=== PATIENT | male | born 1965 | race Caucasian/White ===

== ENCOUNTER 2024-11-04 21:20 | Inpatient (IN) | payer MEDICARE, SELFPAY ==
[2024-11-04 21:35] VITALS: BP 116/73; PULSE 90; RESP 18; TEMP 37.7; O2SAT 97
--- NOTE | 2024-11-04 22:22 | EDS_ITS ---
HPI History of Present Illness Chief Complaint: Male Pain/Injury Informant: patient Pain Onset: Today Context: Gradual Onset Timing: Continuous Worsened by: Ambulation Relieved by: Rest Narrative Narrative: Patient presents with right inguinal pain that began this morning when he woke up. Patient states that it is gradually gotten worse throughout the day. Patient describes the pain as dull. Patient states it is worse whenever he ambulates. Patient states it is better when he lays down. Patient also admits to some bumps in his right inguinal area. Patient states he had a fever earlier today that was up to 100.8. Patient states it improved with Tylenol. Patient states nothing seems to help with his pain. Patient states that when he is ambulating, he notices that his lower leg turned purple. Patient denies any coldness. Patient states he has a history of vascular stents in both lower extremities. [facility] Medical History (Updated 11/05/24 @ 00:[address] Osman Brown, ) DVT (deep venous thrombosis) Home Medications ?Medication ?Instructions ?Recorded ?Last Taken ?Type herbal complex no.174 450 mg 450 mg PO PRN 11/04/24 Unknown History capsule (Echinacea and Goldenseal) vitamin A 2,400 mcg capsule 2,400 mcg PO DAILY 11/04/24 Unknown History Allergy/AdvReac Type Severity Reaction Status Date / Time Opioids - Morphine Analogues Allergy Other Verified 11/04/24 21:34 Surgical History S/P ORIF (open reduction internal fixation) fracture S/P peripheral artery angioplasty with stent placement Social History Smoking Status: Never smoker ROS ROS ED Constitutional Constitutional ED: Reports fever(s); Denies chills Eyes Eyes: Denies blurry vision or change in vision ENT ENT ED: Denies rhinorrhea or sore throat Cardiovascular Cardiovascular: Denies chest pain or palpitations Respiratory/Chest Respiratory/Chest: Denies cough or dyspnea Gastrointestinal Gastrointestinal: Denies nausea or vomiting Genitourinary Genitourinary ED: Denies dysuria or hematuria Musculoskeletal Musculoskeletal: Reports back pain; Denies neck pain Integumentary Denies abscess or rash Neurologic Neurologic: Denies headache(s) or weakness Allergic/Immunologic Allergic/Immunologic ED: Denies mouth swelling or urticaria EXAM Physical Exam Const Vital Signs: 11/04/24 21:35 11/04/24 23:30 Temperature 100 F H Temperature Source Oral Pulse Rate 90 75 Respiratory Rate 18 16 Blood Pressure 116/73 129/72 H Blood Pressure Mean 87 91 Pulse Ox 97 99 Oxygen Delivery Method Room Air Room Air Positive well nourished and well developed General Appearance ED: well developed and NAD HEENT Reports moist mucous membranes Neck supple and no JVD Resp normal respiratory effort and clear to auscultation bilaterally Cardio regular rate and regular rhythm GI non-tender and non-distended Palpation: soft Extremity Extremity Narrative: There is some edema of the right lower extremity. There is no calf tenderness. The right femoral, posterior tibial, and dorsalis pedis pulses are diminished. There is mild delayed capillary refill in the right foot. Sensation was intact to light touch in all digits. There is good range of motion. There is no pallor. Extremities are warm. General Extremety ED: Yes pulses abnormal General Extremity: pulses abnormal Neuro oriented x3, CN's II-XII intact bilaterally, moves all extremities, no focal motor deficits and no sensory deficits noted Sensorium / Orientation: alert Motor Exam: strength 5/5 throughout Psych mental status grossly normal MDM MDM MDM Narrative Medical decision making narrative: Differential diagnosis includes peripheral arterial disease, DVT, inguinal lymphadenitis, cellulitis. CBC will be obtained to assess for leukocytosis and anemia. Basic metabolic profile will be obtained to assess for electrolyte abnormality and renal function. PT with INR and PTT will be obtained to assess for coagulopathy. Venous duplex of the lower extremities will be obtained to assess for DVT. CT scan of the abdomen and pelvis with lower extremity runoffs will be obtained to assess for vascular occlusion. Lab Data Attestation: I reviewed the patient's lab results. Lab results narrative: CBC was reviewed. There is a slight anemia with a hemoglobin of 12.6 and hematocrit of 37.2. Platelets were slightly low at 98. Basic metabolic profile was reviewed and was essentially within normal limits. PT with INR and PTT were reviewed. Pro time was 15.1 and INR was 1.2. PTT was normal at 30. Urinalysis was reviewed. Occult blood was 150 with 5-10 red blood cells. There is no evidence of urinary tract infection. Labs: Laboratory Results - last 24 hr 11/04/24 11/04/24 22:55 23:58 WBC 6.5 RBC 4.10 L Hgb 12.6 L Hct 37.2 L MCV 90.7 MCH 30.7 MCHC 33.9 RDW Std Deviation 49.1 H RDW Coeff of Armida 14.7 H Plt Count 98 L MPV 11.1 Immature Gran % (Auto) 0.300 Neut % (Auto) 78.2 H Lymph % (Auto) 12.3 L [place] % (Auto) 8.1 Eos % (Auto) 0.8 Baso % (Auto) 0.3 Absolute Neuts (auto) 5.1 Absolute Lymphs (auto) 0.80 L Nucleated RBC % 0 Differential Comment SEE COMMENT Platelet Estimate MOD DEC RBC Morphology N CHROM Anisocytosis RARE Macrocytosis RARE PT 15.1 H INR 1.2 APTT 30.0 Sodium 139 Potassium 3.5 Chloride 104 Carbon Dioxide 30.0 Anion Gap 5 BUN 21 H Creatinine 1.03 Estim Creat Clear Calc 85.62 Est GFR (MDRD) Af Amer 96 Est GFR (MDRD) Non-Af 79 BUN/Creatinine Ratio 20.4 H Glucose 111 H Calcium 9.4 Urine Color Yellow Urine Clarity Clear Urine pH 6.0 Ur Specific [place] 1.010 Urine Protein 15 H Urine Glucose (UA) Normal Urine Ketones Negative Urine Occult Blood 150 H Urine Nitrite Negative Urine Bilirubin Negative Urine Urobilinogen Normal Ur Leukocyte Esterase Negative Urine RBC 5-10 SEEN Urine WBC 0-5 SEEN Ur Squamous Epith Cells 0-5 SEEN Uric Acid Crystals 1+ Urine Bacteria 0 SEEN Hyaline Casts 0-5 SEEN Urine Mucus 1+ Radiography Diagnostic Testing: Venous duplex of the right lower extremity was obtained. There is a DVT noted in the right common femoral vein that extends distally down his leg. CTA of the abdomen pelvis with lower extremity runoffs was obtained and is pending. Management Discussion w/another healthcare provider: Hospitalist Treatment and Re-Evaluation Narrative: Patient was given a dose of fentanyl due to his allergy to morphine. Patient states he developed headache after the fentanyl. Patient was given a dose of Tylenol. Patient was advised of his findings. Case was discussed with the hospitalist. He recommended starting the patient on Eliquis due to the thrombocytopenia. This was ordered.. Patient understands and is agreeable with the plan. All questions were answered. Discharge Plan Dx/Rx/DC Orders Clinical Impression: Acute deep vein thrombosis (DVT) of right lower extremity, Peripheral arterial disease, Thrombocytopenia Disposition Disposition: Acute Care Hospital [facility]
--- NOTE | 2024-11-04 22:32 | CT_ITS ---
EXAM: CT ANGIOGRAPHY ABDOMEN AND PELVIS WITH RUNOFF TO THE LOWER EXTREMITIES WITH INTRAVENOUS CONTRAST CLINICAL INDICATION: Abnormal pulses TECHNIQUE: Helically acquired angiography images were obtained of the abdomen, pelvis and lower extremities with intravenous contrast using CTA runoff protocol. This CT exam was performed using one or more of the following dose reduction techniques: automated exposure control, adjustment of the mA and/or kV according to patient size, and/or use of iterative reconstruction technique. MIP reconstructed images were created and reviewed. CONTRAST: 100 cc of Isovue-370 IV. RADIATION DOSE: CTDIvol = 8.59 mGy, DLP = 1080.29 mGy-cm COMPARISON: No relevant prior studies available. FINDINGS: VASCULATURE: AORTA: Mild atherosclerotic changes of the infrarenal abdominal aorta without stenosis or aneurysm. No dissection. CELIAC TRUNK AND MESENTERIC ARTERIES: No acute findings. No occlusion or significant stenosis. No dissection. RENAL ARTERIES: No acute findings. No occlusion or significant stenosis. No dissection. RIGHT ILIAC ARTERIES: No acute findings. No occlusion or significant stenosis. No dissection. RIGHT FEMORAL/POPLITEAL ARTERIES: No acute findings. No occlusion or significant stenosis. No dissection. RIGHT CALF/FOOT ARTERIES: Diffuse atherosclerotic calcifications with occlusion of the right posterior tibial and peroneal arteries. Diffuse atherosclerotic calcifications right posterior tibial artery with occlusion at the midpoint in the calf. Poor visualization of the distal right anterior tibial artery probably due to timing of the contrast bolus. LEFT ILIAC ARTERIES: No acute findings. No occlusion or significant stenosis. No dissection. LEFT FEMORAL/POPLITEAL ARTERIES: No acute findings. No occlusion or significant stenosis. No dissection. LEFT CALF/FOOT ARTERIES: Diffuse atherosclerotic calcifications left peroneal artery with occlusion distally. Poor visualization of the distal left anterior tibial artery probably due to timing of the contrast bolus. ILIAC VEINS: Bilateral common iliac vein stents. LOWER THORAX: Unremarkable. Lung bases are clear. No cardiomegaly. No significant pericardial effusion. ABDOMEN: LIVER: Unremarkable. Homogeneous. No focal mass. GALLBLADDER AND BILE DUCTS: Unremarkable. No calcified gallstones. No gallbladder distention or wall edema. No intra- or extrahepatic biliary ductal dilation. PANCREAS: Unremarkable. No focal cystic or solid mass. SPLEEN: Unremarkable. Normal size without focal cystic or solid mass. ADRENALS: Unremarkable. No nodules. KIDNEYS AND URETERS: Unremarkable. Normal renal size and position. No hydronephrosis. STOMACH AND BOWEL: Unremarkable. No stomach or bowel distention. No focal inflammatory change. PELVIS: APPENDIX: No evidence of acute appendicitis. BLADDER: Unremarkable. REPRODUCTIVE: Unremarkable as visualized. No mass. ABDOMEN, PELVIS and LOWER EXTREMITIES: INTRAPERITONEAL SPACE: Unremarkable. No ascites or other fluid collection. No free air. 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 Status post ACL repair left knee. No suspicious lytic or blastic abnormality. SOFT TISSUES: Unremarkable. No discrete abdominal or pelvic wall hernia. LYMPH NODES: Unremarkable. No enlarged lymph nodes. CT/CTA Abd w/Runoff W/WO Contrast IMPRESSION: 1. Diffuse atherosclerotic calcifications with occlusion of the right posterior tibial and peroneal arteries. Poor visualization of the distal right anterior tibial artery probably due to timing of the contrast bolus. 2. Diffuse atherosclerotic calcifications left peroneal artery with occlusion distally. Poor visualization of the distal left anterior tibial artery probably due to timing of the contrast bolus. Electronically Signed: Mino hRodes MD at 1:46 EST ,
[2024-11-04 22:37] VITALS: BMI 22.8
--- NOTE | 2024-11-04 22:47 | US_ITS ---
INDICATION: RT LEG REDNESS EXAMINATION: Ultrasound US Venous Duplex LE Unilat / Limited TECHNIQUE: Boyd scale, pulse wave, and color flow Doppler imaging was performed of the extremity venous system. COMPARISON: None. US/Venous Duplex Imag/Limited/Uni IMPRESSION: DVT of the right common femoral vein extending into right superficial femoral vein Electronically Signed: Harris León MD at 1:46 EST ,
[2024-11-04] MEDS: 0.9% Normal Saline (1000mL) 1,000 ML 1000 ML IV (22:54)
[2024-11-04] MEDS: fentaNYL 100 MCG/2 ML Ampul 50 MCG IV (22:55)
[2024-11-04 23:09] LABS: Absolute Neutrophil Count 5.1 X10^3/uL (2.0-7.7); Basophil# 0.02 X10^3/uL; Basophil% 0.3 % (0-1); Eosinophil# 0.05 X10^3/uL; Eosinophils% 0.8 % (0-5); Hematocrit 37.2 % (40-54); Hemoglobin 12.6 g/dL (13.0-16.5); Lymphocyte % 12.3 % (19-41); Mean Corp Hgb Conc 33.9 g/dL (32-36); Mean Corpuscular Hgb 30.7 pg (27.0-32.0); Mean Corpuscular Volume 90.7 fL (80-94); Mean Platelet Vol. 11.1 fl (6.2-12.0); Monocyte# 0.53 X10^3/uL; Monocyte% 8.1 % (0-10); NRBC Flagged by Analyzer 0 % (0-5); Neutrophil % 78.2 % (47-70); POSITIVE COUNT YES; Platelet Count 98 K/mm3 (150-450); RBC Distribution Width CV 14.7 % (11.6-14.6); RBC Distribution Width SD 49.1 fl (35.1-43.9); White Blood Count 6.5 K/mm3 (4.4-11.0)
[2024-11-04 23:17] LABS: International Normalized Ratio 1.2; Prothrombin Time (Protime)PT. 15.1 SECONDS (11.7-14.9)
[2024-11-04 23:22] LABS: Anion Gap 5 (5-15); BUN 21 mg/dL (7-18); BUN/Creat Ratio 20.4 RATIO (10-20); Calcium,Total 9.4 mg/dL (8.5-10.1); Chloride 104 mmol/L (98-107); Creatinine, Serum 1.03 mg/dL (0.70-1.30); EST Glomerular Filtration Rate 79 mL/min (>60); Est Glom Filt Rate - Afr Amer 96 mL/min (>60); Estimated Creatinine Clearance 85.62 ml/min; Glucose 111 mg/dL (74-106); Potassium 3.5 mmol/L (3.5-5.1); Sodium Level 139 mmol/L (136-145)
[2024-11-04 23:30] VITALS: BP 129/72; PULSE 75; RESP 16; O2SAT 99
[2024-11-04 23:30] LABS: Differential Indicated SCAN CRITERIA MET
[2024-11-04 23:31] LABS: Anisocytosis RARE; Macrocytosis RARE; Platelet Estimate MOD DEC (ADEQ); Red Cell Morphology N CHROM NORMAL (NORM C&C)
[2024-11-05 00:17] LABS: Bacteria 0 SEEN /hpf (None Seen)
[2024-11-05 00:25] LABS: Color, Urine Yellow (Yellow); Glucose, Dipstick Normal (Normal); Ketone-Dipstick Negative (Negative); Leukocyte Esterase-Dipstick Negative /ul (Negative); Nitrite-Dipstick Negative (Negative); Occult Blood-Urine 150 /ul (Negative); Protein-Dipstick 15 mg/dl (Negative); Urine Bilirubin Dipstick Negative (Negative); Urine Clarity Clear (Clear); Urine Urobilinogen Normal (Normal)
[2024-11-05 00:36] LABS: Hyaline Cast 0-5 SEEN /lpf (0-5); Mucous, Urine 1+ /hpf (<or=2+); Red Blood Cells-Urine 5-10 SEEN /hpf (0-5); Squamous Epithelial Cells - UA 0-5 SEEN /hpf (0-5); Uric Acid Crystals Ur 1+ /hpf (<or=1+); White Blood Cells 0-5 SEEN /hpf (0-5)
[2024-11-05] MEDS: Acetaminophen 500 MG Tablet 1000 MG PO (00:52)
[2024-11-05] MEDS: APIXABAN 5 MG TABLET 10 MG PO (00:53)
[2024-11-05 01:00] VITALS: BP 124/76; PULSE 87; RESP 18; O2SAT 97
--- NOTE | 2024-11-05 02:07 | HP.PCM_ITS ---
HPI - General General Date of Admission: 11/05/24 Date of Service: 11/05/24 Chief Complaint: Right leg pain HPI Narrative REGINA SORENSEN, is a 59 M who presents to the emergency room with right inguinal pain. Patient has significant past medical history of vascular disease status post stenting of both lower extremities. He states he has had increasing pain throughout the day in the right lower extremity that gets worse with activity and better with rest. He states with activity his leg turns purple and he feels bumps in his right inguinal area. Patient denies chest pain, shortness of breath and/or nausea vomiting or diarrhea. Venous Doppler ultrasound shows DVT in the common femoral vein as well as CT angiogram shows multiple lower extremity artery occlusions. Patient will be admitted to the progressive care unit and vascular surgery consulted. [facility] Medical History (Updated 11/05/24 @ 00:[address] Osman Brown DO) DVT (deep venous thrombosis) Home Medications ?Medication ?Instructions ?Recorded ?Last Taken ?Type herbal complex no.174 450 mg 450 mg PO PRN 11/04/24 Unknown History capsule (Echinacea and Goldenseal) vitamin A 2,400 mcg capsule 2,400 mcg PO DAILY 11/04/24 Unknown History Allergy/AdvReac Type Severity Reaction Status Date / Time Opioids - Morphine Analogues Allergy Other Verified 11/04/24 21:34 Surgical History S/P ORIF (open reduction internal fixation) fracture S/P peripheral artery angioplasty with stent placement Social History Smoking Status: Never smoker ROS Constitutional Constitutional: Reports fever(s); Denies chills Eyes Eyes: Denies blurry vision ENT HEENT: Denies abnormal hearing Cardiovascular Cardiovascular: Denies chest pain Respiratory/Chest Respiratory/Chest: Denies shortness of breath at rest Gastrointestinal Gastrointestinal: Denies abdominal pain Genitourinary Genitourinary: Denies dysuria Musculoskeletal Musculoskeletal: Reports extremity pain Integumentary Integumentary: Denies wounds Neurologic Neurologic: Denies abnormal speech Psychiatric Psychiatric: Denies anxiety Vital Signs Vital Signs Vital Signs: 11/04/24 21:35 11/04/24 23:30 11/05/24 01:00 Temperature 100 F H Temperature Source Oral Pulse Rate 90 75 87 Respiratory Rate 18 16 18 Blood Pressure 116/73 129/72 H 124/76 H Blood Pressure Mean 87 91 92 Pulse Ox 97 99 97 Oxygen Delivery Method Room Air Room Air Room Air Weight Weight: 168 lb 10.458 oz Body Mass Index (BMI) 22.8 Physical Exam Const oriented x3 General Appearance: cooperative HEENT normocephalic and head/scalp atraumatic Eyes PERRL Neck no lymphadenopathy Lymph Lymphatic: no lymphadenopathy noted Resp normal respiratory effort, normal air movement and clear to auscultation bilaterally Cardio regular rate, regular rhythm, S1 normal heart sound and S2 normal heart sound GI normal to inspection, nondistended, normoactive bowel sounds Extremity Extremity Narrative: Right lower extremity inguinal pain and tenderness. Distal pulse was obtained by Doppler in the emergency room but not palpable on the right lower extremity. There is no edema bilaterally lower extremities Skin General Skin Exam: no breakdown Neuro no focal motor deficits and no sensory deficits noted Psych thought process normal, cooperative and affect normal Results Lab / Micro Data 11/04/24 22:55 11/04/24 22:55 Labs: Laboratory Results - last 24 hr 11/04/24 22:55: WBC 6.5, RBC 4.10 L, Hgb 12.6 L, Hct 37.2 L, MCV 90.7, MCH 30.7, MCHC 33.9, RDW Std Deviation 49.1 H, RDW Coeff of [place] 14.7 H, Plt Count 98 L, MPV 11.1, Immature Gran % (Auto) 0.300, Neut % (Auto) 78.2 H, Lymph % (Auto) 12.3 L, [place] % (Auto) 8.1, Eos % (Auto) 0.8, Baso % (Auto) 0.3, Absolute Neuts (auto) 5.1, Absolute Lymphs (auto) 0.80 L, Nucleated RBC % 0, Differential Comment SEE COMMENT, Platelet Estimate MOD DEC, RBC Morphology N CHROM, Anisocytosis RARE, Macrocytosis RARE, PT 15.1 H, INR 1.2, APTT 30.0, Sodium 139, Potassium 3.5, Chloride 104, Carbon Dioxide 30.0, Anion Gap 5, BUN 21 H, Creatinine 1.03, Estim Creat Clear Calc 85.62, Est GFR (MDRD) Af Amer 96, Est GFR (MDRD) Non-Af 79, BUN/Creatinine Ratio 20.4 H, Glucose 111 H, Calcium 9.4 11/04/24 23:58: Urine Color Yellow, Urine Clarity Clear, Urine pH 6.0, Ur Specific [place] 1.010, Urine Protein 15 H, Urine Glucose (UA) Normal, Urine Ketones Negative, Urine Occult Blood 150 H, Urine Nitrite Negative, Urine Bilirubin Negative, Urine Urobilinogen Normal, Ur Leukocyte Esterase Negative, Urine RBC 5-10 SEEN, Urine WBC 0-5 SEEN, Ur Squamous Epith Cells 0-5 SEEN, Uric Acid Crystals 1+, Urine Bacteria 0 SEEN, Hyaline Casts 0-5 SEEN, Urine Mucus 1+ Imaging Radiology Impression Abdomen/Pelvis CTA 11/04/24 22:32 IMPRESSION: 1. Diffuse atherosclerotic calcifications with occlusion of the right posterior tibial and peroneal arteries. Poor visualization of the distal right anterior tibial artery probably due to timing of the contrast bolus. 2. Diffuse atherosclerotic calcifications left peroneal artery with occlusion distally. Poor visualization of the distal left anterior tibial artery probably due to timing of the contrast bolus. Electronically Signed: Mino Rhodes MD at 1:46 EST , Venous Duplex 11/04/24 22:47 IMPRESSION: DVT of the right common femoral vein extending into right superficial femoral vein Electronically Signed: Harris León MD at 1:46 EST , Assessment & Plan Assessment/Plan (1) Peripheral arterial disease: (2) Acute deep vein thrombosis (DVT) of right lower extremity: (3) Thrombocytopenia: PLAN: Plan 1 acute deep vein thrombosis?patient will be admitted to progressive care unit, patient was started on Eliquis in the emergency room. 2. Peripheral artery disease with multiple lower extremity arteries occluded by CT angiogram?will consult vascular surgery and add as needed pain medication, will make sure patient is on statin medication and check fasting lipid panel. Patient is noted to have previous stents in both lower extremities placed approximately 2 to 3 years ago at [facility]. 3. Thrombocytopenia?repeat CBC, will hold off on antiplatelet therapy until evaluated by vascular surgery
[2024-11-05 02:09] VITALS: BP 124/68; PULSE 69; RESP 18; TEMP 37.2; O2SAT 94
[2024-11-05 02:54] VITALS: BMI 21.8
[2024-11-05 03:11] VITALS: BP 117/76; PULSE 71; RESP 18; TEMP 36.7; O2SAT 98
[2024-11-05 06:28] LABS: Absolute Lymphocyte Count 0.63 X10^3/uL (0.83-4.51); Absolute Neutrophil Count 3.8 X10^3/uL (2.0-7.7); Basophil# 0.02 X10^3/uL; Basophil% 0.4 % (0-1); Lymphocyte # 0.63 X10^3/ul (0.83-4.51); Lymphocyte % 12.5 % (19-41); Mean Corp Hgb Conc 33.3 g/dL (32-36); Mean Corpuscular Hgb 30.7 pg (27.0-32.0); Mean Corpuscular Volume 92.1 fL (80-94); Monocyte% 9.9 % (0-10); NRBC Flagged by Analyzer 0 % (0-5); Neutrophil # 3.78 X10^3/uL (2.7-7.7); Neutrophil % 74.8 % (47-70); POSITIVE COUNT YES; Platelet Count 88 K/mm3 (150-450); RBC Distribution Width CV 14.8 % (11.6-14.6); RBC Distribution Width SD 50.2 fl (35.1-43.9); Red Blood Count 3.91 M/mm3 (4.6-6.2); White Blood Count 5.1 K/mm3 (4.4-11.0)
[2024-11-05 06:30] LABS: International Normalized Ratio 1.6; Prothrombin Time (Protime)PT. 18.7 SECONDS (11.7-14.9)
[2024-11-05 06:48] LABS: Anion Gap 4 (5-15); BUN 15 mg/dL (7-18); BUN/Creat Ratio 17.4 RATIO (10-20); Calcium,Total 8.8 mg/dL (8.5-10.1); Chloride 107 mmol/L (98-107); Creatinine, Serum 0.86 mg/dL (0.70-1.30); EST Glomerular Filtration Rate 97 mL/min (>60); Est Glom Filt Rate - Afr Amer 117 mL/min (>60); Estimated Creatinine Clearance 97.99 ml/min; Glucose 119 mg/dL (74-106); Potassium 3.4 mmol/L (3.5-5.1); Sodium Level 139 mmol/L (136-145)
[2024-11-05] MEDS: 0.9% Normal Saline (1000mL) 1,000 ML 100 ML IV ×2 (06:50→17:06)
[2024-11-05] MEDS: HYDROmorphone 1 MG/ML Syringe IV ×3 (06:52→21:17)
--- NOTE | 2024-11-05 07:15 | VDLE_ITS ---
Reason For Study: HX DVT / PAin RIGHT LEFT Acute SVT noted in GSV at SFJ and prox GSV is normal. vessel. GSV is compressible at mid and Did not acquire compressions at CFV due to distal. presence of stent. Flow appears spontaneous Acute deep vein thrombosis is noted in the and phasic. CFV. It is dilated and NONCOMPRESSIBLE. Acute deep vein thrombosis is noted in the Acute deep vein thrombosis is noted in the FV. It is dilated and NONCOMPRESSIBLE. FV. It is dilated and NONCOMPRESSIBLE. Acute deep vein thrombosis is noted in the Acute deep vein thrombosis is noted in the POP V. It is dilated and NONCOMPRESSIBLE. DEEP FV. It is dilated and NONCOMPRESSIBLE. T/P Trunk is compressible. Acute deep vein thrombosis is noted in the PTV is compressible. POP V. It is dilated and NONCOMPRESSIBLE. LT PerV is compressible. Acute deep vein thrombosis is noted in the Gastrocnemius V. It is dilated and NONCOMPRESSIBLE. Acute deep vein thrombosis is noted in the T/P Trunk. It is dilated and NONCOMPRESSIBLE. Acute deep vein thrombosis is noted in the PTV. It is dilated and NONCOMPRESSIBLE. Acute deep vein thrombosis is noted in the Per V. It is dilated and NONCOMPRESSIBLE. Procedure Exam performed portable in patient room. This is a venous duplex using B-mode, color flow and spectral Doppler. The exam was diagnostic. A preliminary report was called and/or faxed to [employer]. VL/Venous Duplex US - [place] Extrem Interpretation Summary Acute deep vein thrombosis is noted in the right common femoral vein, femoral v ein, profunda femoral vein, popliteal vein, tibioperoneal trunk vein, gastrocnemius vein, posterior t ibial vein, peroneal vein. Acute superficial vein thrombosis noted in the right saphenofemoral junction, g reat saphenous vein. Acute deep vein thrombosis is noted in the left femoral vein, popliteal vein. Ordering Physician: Helen Anguiano Referring Physician: N/A Performed By: Ant Renteria RVT
--- NOTE | 2024-11-05 07:15 | AAVD_ITS ---
Reason For Study: BLE Iliac Vein Stents / HX DVT Inferior Vena Cava Unable to visualize prox and mid IVC due to gas / patient not NPO. No flow visualized in distal IVC with pulsed and color doppler. Distal inferior vena cava measures 1.34 x 1.37 cm. in the cross- sectional axis. Distal inferior vena cava measures 1.42 cm. in the longitudinal axis. Left Common Iliac Vein Left common iliac vein measures 1.30 x 1.30 cm. in the cross-sectional axis. Left common iliac vein measures 1.30 cm. in the longitudinal axis. The left common iliac vein has spontaneous, phasic flow throughout. Right Common Iliac Vein Right common iliac vein measures 2.03 x 2.19 cm. in the cross-sectional axis. Right common iliac vein measures 2.11 cm. in the longitudinal axis. NO flow visualized in pulsed wave or color doppler. Intraluminal echoes noted. Procedure Aorta IVC Iliac vasculature or bypass grafts [id number]. Limited views obtained. Exam performed portable in patient room. VL/Abd Aortic/IVC Duplex scan Interpretation Summary Inferior vena cava limited visualization, visualized thrombus. Right iliac vein stent occluded Left iliac vein stent patent with normal venous flow pattern. Ordering Physician: Helen Anguiano Referring Physician: N/A Performed By: Ant Renteria RVT
--- NOTE | 2024-11-05 08:21 | CON.PCM.SX_ITS ---
Assessment & Plan Assessment/Plan (1) Iliac vein stenosis, right: (2) Iliac vein stenosis, left: (3) Acute deep vein thrombosis (DVT) of right lower extremity: PLAN: Plan Plan to obtain IVC duplex to evaluate bilateral iliac vein stents. Will also obtain bilateral lower extremity venous duplex to confirm thrombus burden. Pending these results would consider venogram with thrombectomy unless he has significant improvement in his symptoms with anticoagulation alone. Will discontinue Eliquis. Start IV heparin at therapeutic weight-based dosing. Repeat CBC this afternoon to monitor PLT count. OK for normal/soft diet today. HPI Consult Data Date of Consult: 11/05/24 HPI Narrative HPI Narrative: REGINA SORENSEN, is a 59 M who presented to the [facility] ER overnight with increased pain, swelling, and discoloration in his RLE. He had a CTA which revealed PAD with mostly tibial disease. He had a venous duplex which showed R CFV and SFV thrombus. He was admitted on Eliquis starter dose. He reports that when he woke up yesterday he noticed increased discomfort in his R thigh/groin. As the day went on, this discomfort continued to increase and he also noticed a slight purple discoloration to his RLE and increased RLE edema. He had tried a variety of herbal supplements at home to help with these symptoms with no improvement. He reports that in 2009 he had an extensive LLE DVT secondary to prolonged hospitalization from complications related to an outpatient surgery for bursitis. He was treated with Coumadin for that DVT. He vaguely reports other clots in his groin area, but unable to say whether superficial vs deep but does not think he was anticoagulated for these. Then in he had iliac vein stents placed due to persistent lower extremity edema/varicosities. This was all in [place], he recently moved from [place] to the [facility] in May. He has noted thrombocytopenia here. He thinks this is longstanding and that he has previously been seen by a kiln head house operator (he thinks for this) but was told it is not a concern. [facility] Medical History (Updated 11/05/24 @ 07:44 by ANA Arteaga) DVT (deep venous thrombosis) Home Medications ?Medication ?Instructions ?Recorded ?Last Taken ?Type herbal complex no.174 450 mg 450 mg PO PRN 11/04/24 Unknown History capsule (Echinacea and Goldenseal) vitamin A 2,400 mcg capsule 2,400 mcg PO DAILY 11/04/24 Unknown History Allergy/AdvReac Type Severity Reaction Status Date / Time Opioids - Morphine Analogues Allergy Other Verified 11/04/24 21:34 Surgical History (Updated 11/05/24 @ 07:44 by ANA Arteaga) S/P ORIF (open reduction internal fixation) fracture Social History Smoking Status: Never smoker Physical Exam Const alert, oriented x3 and no apparent distress HEENT normocephalic, head/scalp atraumatic and external nose normal HEENT Narrative: Edentulous Eyes EOMs intact bilaterally Neck General: normal visual inspection Resp normal respiratory effort and no retractions Effort and Inspection: able to speak in complete sentences Cardio Rate: regular rate Rhythm: regular rhythm Extremity Extremity Narrative: RLE 1+ edema compared to LLE R foot with pedal pulses diminished but palpable; R foot appropriately warm, sensory and motor function intact Skin no rashes or lesions noted Neuro CN's II-XII intact bilaterally Speech: speech normal Psych mental status grossly normal Appearance: grossly normal Lab / Micro Data 11/05/24 05:59 11/05/24 05:59 Labs: Laboratory Results - last 24 hr 11/04/24 22:55: WBC 6.5, RBC 4.10 L, Hgb 12.6 L, Hct 37.2 L, MCV 90.7, MCH 30.7, MCHC 33.9, RDW Std Deviation 49.1 H, RDW Coeff of Armida 14.7 H, Plt Count 98 L, MPV 11.1, Immature Gran % (Auto) 0.300, Neut % (Auto) 78.2 H, Lymph % (Auto) 12.3 L, [place] % (Auto) 8.1, Eos % (Auto) 0.8, Baso % (Auto) 0.3, Absolute Neuts (auto) 5.1, Absolute Lymphs (auto) 0.80 L, Nucleated RBC % 0, Differential Comment SEE COMMENT, Platelet Estimate MOD DEC, RBC Morphology N CHROM, Anisocytosis RARE, Macrocytosis RARE, PT 15.1 H, INR 1.2, APTT 30.0, Sodium 139, Potassium 3.5, Chloride 104, Carbon Dioxide 30.0, Anion Gap 5, BUN 21 H, Creatinine 1.03, Estim Creat Clear Calc 85.62, Est GFR (MDRD) Af Amer 96, Est GFR (MDRD) Non-Af 79, BUN/Creatinine Ratio 20.4 H, Glucose 111 H, Calcium 9.4 11/04/24 23:58: Urine Color Yellow, Urine Clarity Clear, Urine pH 6.0, Ur Specific [place] 1.010, Urine Protein 15 H, Urine Glucose (UA) Normal, Urine Ketones Negative, Urine Occult Blood 150 H, Urine Nitrite Negative, Urine Bilirubin Negative, Urine Urobilinogen Normal, Ur Leukocyte Esterase Negative, Urine RBC 5-10 SEEN, Urine WBC 0-5 SEEN, Ur Squamous Epith Cells 0-5 SEEN, Uric Acid Crystals 1+, Urine Bacteria 0 SEEN, Hyaline Casts 0-5 SEEN, Urine Mucus 1+ 11/05/24 05:59: WBC 5.1, RBC 3.91 L, Hgb 12.0 L, Hct 36.0 L, MCV 92.1, MCH 30.7, MCHC 33.3, RDW Std Deviation 50.2 H, RDW Coeff of Armida 14.8 H, Plt Count 88 L, MPV 11.0, Immature Gran % (Auto) 0.400, Neut % (Auto) 74.8 H, Lymph % (Auto) 12.5 L, [place] % (Auto) 9.9, Eos % (Auto) 2.0, Baso % (Auto) 0.4, Absolute Neuts (auto) 3.8, Absolute Lymphs (auto) 0.63 L, Nucleated RBC % 0, PT 18.7 H, INR 1.6, Sodium 139, Potassium 3.4 L, Chloride 107, Carbon Dioxide 28.0, Anion Gap 4 L, BUN 15, Creatinine 0.86, Estim Creat Clear Calc 97.99, Est GFR (MDRD) Af Amer 117, Est GFR (MDRD) Non-Af 97, BUN/Creatinine Ratio 17.4, Glucose 119 H, Calcium 8.8, Magnesium 2.0 Imaging Radiology Impression Abdomen/Pelvis CTA 11/04/24 22:32 IMPRESSION: 1. Diffuse atherosclerotic calcifications with occlusion of the right posterior tibial and peroneal arteries. Poor visualization of the distal right anterior tibial artery probably due to timing of the contrast bolus. 2. Diffuse atherosclerotic calcifications left peroneal artery with occlusion distally. Poor visualization of the distal left anterior tibial artery probably due to timing of the contrast bolus. Electronically Signed: Mino Rhodes MD at 1:46 EST , Venous Duplex 11/04/24 22:47 IMPRESSION: DVT of the right common femoral vein extending into right superficial femoral vein Electronically Signed: Harris León MD at 1:46 EST , Charges/Coding Visit Charges Inpatient E&M: 91852 Init Hosp L1
[2024-11-05] MEDS: Acetaminophen 325 MG Tablet 650 MG PO (08:33)
[2024-11-05] MEDS: HEPARIN/D5w 25,000 UNITS 25,000 UNITS/250 ML IV.SOLN. 11 UNITS CONT INF (08:35)
[2024-11-05 09:00] VITALS: BP 110/70; PULSE 67; RESP 18; TEMP 37.1; O2SAT 99
--- NOTE | 2024-11-05 10:51 | CASEMGMT ---
RN?CM?PATIENT TRANSPORTER?CM?to room to meet with patient for initial transition planning/care coordination?assessment.?RN?CM?introduced self and role at [facility].? Pt voices understanding and consents to?assessment?at this time.? Pt resting in bed in no distress at this time.? Pt is A/O at this time and answers all questions appropriately.?? Care providers, pharmacy, and demographics verified/updated at this time. PCP: No PCP. States will be moving to [place] in a few days and would like a list of PCP's in that area. Provided w/list of PCP's all w/in 5 miles of [place]. Pt encouraged to get appt w/PCP to get established as a new patient as soon as possible for hospital f/u, on-going medical care, and for Rx refills. Specialists: none Preferred Pharmacy: [facility] @ [address] Otherwise, goes to [facility]. Insurance: [facility] A/B. States he has applied for RUFUS, but not sure if he has it. Call placed to registration. She states pt does have RUFUS, but the kind he has only covers for [facility] premiums. Prescription Benefit:? Pt states, I don't know if I have this. Per registration, pt has Part D/[employer]. Pt most likely to discharge on Eliquis. Made aware of Eliquis trial offer card. He states if Rx/refills are high cost, he will not be able to afford it. RN BRET, Susan, made aware and will follow re: Rx, blankenship check, savings card. Living Will/HPOA:? Pt does not currently have LW/HCPOA and declines info at this time.? Pt made aware that he can contact as an out-pt and make appt in the future if he decides he would like to talk with someone about this or would like to utilize [facility] social work for advanced directive completion.? LNOK: Mother, Astrid. Per patient, father is . No children. No siblings. Living Arrangements: Pt grew up in [place], moved to [place] w/his ( now) in 2014 and just moved back to [place] May of this year. He is currently living w/his mother, but plans to move in w/friends in [place] in a couple of days. (Address: [address] [place] [id number]). He then plans to move out of state in a few months. The home w/his mother is a ground-level apartment w/a threshold step. Pt is independent w/ADL's and does his own laundry. Mother gets groceries and prepares meals. Transportation:?Pt states he only has his driving permit. His mother drives and states she will most likely be the one taking him home from the hospital. DME: ? Denies using any DME and denies needs.? HHC/SNF: No hx. Pt wishes to return home w/his mother for a few days and then will be moving in w/friends in [place] (as stated above) He states has no concerns with going home at time of discharge.??CM?to follow for any further discharge planning/needs.? Pt voices no further concerns/needs at this time.? Advised pt to ask for?CM?if any further questions/concerns/needs arise.? Voices understanding. PLAN:??Home w/mother, then to friends in a few days. RN CM to follow for anti-coag and cost. Silke MEJIAN?RN?CM
[2024-11-05] MEDS: 0.9% Saline Lock 10 ML Syringe IV ×2 (11:15→21:20)
[2024-11-05 15:00] VITALS: BP 116/62; PULSE 71; RESP 18; TEMP 37.5; O2SAT 100
[2024-11-05 15:36] LABS: Mean Corp Hgb Conc 33.3 g/dL (32-36); Mean Corpuscular Hgb 30.6 pg (27.0-32.0); Mean Corpuscular Volume 91.8 fL (80-94); Mean Platelet Vol. 11.2 fl (6.2-12.0); POSITIVE COUNT YES; Platelet Count 95 K/mm3 (150-450); RBC Distribution Width CV 14.9 % (11.6-14.6); Red Blood Count 3.92 M/mm3 (4.6-6.2)
[2024-11-05 17:33] LABS: Partial Thromboplast Time 62.9 Seconds (24.1-36.2)
[2024-11-05 21:09] VITALS: BP 122/72; PULSE 80; RESP 18; TEMP 37; O2SAT 96
[2024-11-06] VITALS (22 sets, daily range): BP systolic 90–126; BP diastolic 54–82; PULSE 66–86; RESP 12–18; TEMP 36.4–37.3; O2SAT 93–100
[2024-11-06] MEDS: Senna/Docusate Sodium 1 Tablet PO (01:08)
[2024-11-06 04:03] LABS: Absolute Lymphocyte Count 0.81 X10^3/uL (0.83-4.51); Absolute Neutrophil Count 3.7 X10^3/uL (2.0-7.7); Basophil# 0.02 X10^3/uL; Basophil% 0.4 % (0-1); Eosinophil# 0.18 X10^3/uL; Eosinophils% 3.5 % (0-5); Hematocrit 32.8 % (40-54); Hemoglobin 11.2 g/dL (13.0-16.5); Lymphocyte # 0.81 X10^3/ul (0.83-4.51); Lymphocyte % 15.8 % (19-41); Mean Corp Hgb Conc 34.1 g/dL (32-36); Mean Corpuscular Hgb 30.7 pg (27.0-32.0); Mean Corpuscular Volume 89.9 fL (80-94); Monocyte# 0.39 X10^3/uL; Monocyte% 7.6 % (0-10); NRBC Flagged by Analyzer 0 % (0-5); Neutrophil % 72.3 % (47-70); POSITIVE COUNT YES; Platelet Count 98 K/mm3 (150-450); RBC Distribution Width CV 14.7 % (11.6-14.6); RBC Distribution Width SD 48.5 fl (35.1-43.9); Red Blood Count 3.65 M/mm3 (4.6-6.2); White Blood Count 5.1 K/mm3 (4.4-11.0)
[2024-11-06 04:33] LABS: Anion Gap 3 (5-15); BUN 10 mg/dL (7-18); BUN/Creat Ratio 13.3 RATIO (10-20); Calcium,Total 8.3 mg/dL (8.5-10.1); Chloride 106 mmol/L (98-107); Creatinine, Serum 0.75 mg/dL (0.70-1.30); EST Glomerular Filtration Rate 113 mL/min (>60); Est Glom Filt Rate - Afr Amer 137 mL/min (>60); Estimated Creatinine Clearance 112.36 ml/min; Glucose 125 mg/dL (74-106); Potassium 3.7 mmol/L (3.5-5.1); Sodium Level 137 mmol/L (136-145)
[2024-11-06 04:46] LABS: Partial Thromboplast Time 70.3 Seconds (24.1-36.2)
--- NOTE | 2024-11-06 05:55 | EKG12_ITS ---
Test Reason : PRE-OP Blood Pressure : */* mmHG Vent. Rate : 70 BPM Atrial Rate : 70 BPM P-R Int : 142 ms QRS Dur : 88 ms QT Int : 372 ms P-R-T Axes : 55 68 73 degrees QTcB Int : 401 ms Normal sinus rhythm Normal ECG No previous ECGs available Confirmed by RICK ESCALANTE MD ([id number]), news copy editor GEORGINA FUNG ([id number]) on 11/06/2024 2:15:56 PM Referred By: Confirmed By: RICK ESCALANTE MD
[2024-11-06] MEDS: HEPARIN/D5w 25,000 UNITS 25,000 UNITS/250 ML IV.SOLN. 11 UNITS CONT INF (06:03)
[2024-11-06] MEDS: HYDROmorphone 1 MG/ML Syringe IV ×2 (06:45→20:37)
--- NOTE | 2024-11-06 10:37 | PCM.PN.HOSP ---
Subjective Subjective Doing well, no issues overnight Objective Data Objective Data Vital Signs: Vital Signs Temp Pulse Resp BP Pulse Ox O2 Del Method 98.5 F 76 18 103/64 96 Room Air 11/06/24 03:38 11/06/24 03:38 11/06/24 03:38 11/06/24 03:38 11/06/24 03:38 11/06/24 09:11 Oxygen Delivery Method Room Air Weight: 161 lb 2.526 oz Body Mass Index (BMI) 21.8 Intake & Output: Intake and Output for Last 24 Hours 11/05/24 11/06/24 11/07/24 03:59 03:59 03:59 Intake Total 1000 / 1000 2928.08 / 2928.08 28.05 / 28.05 Output Total 800 / 800 200 / 200 Balance 1000 / 1000 2128.08 / 2128.08 -171.95 / -171.95 Lab / Micro Data 11/06/24 03:30 11/06/24 03:30 Labs: Laboratory Results - last 24 hr 11/05/24 15:00: WBC 5.0, RBC 3.92 L, Hgb 12.0 L, Hct 36.0 L, MCV 91.8, MCH 30.6, MCHC 33.3, RDW Std Deviation 50.0 H, RDW Coeff of Armida 14.9 H, Plt Count 95 L, MPV 11.2, APTT 62.9 H 11/05/24 21:11: APTT 64.0 H 11/06/24 03:30: WBC 5.1, RBC 3.65 L, Hgb 11.2 L, Hct 32.8 L, MCV 89.9, MCH 30.7, MCHC 34.1, RDW Std Deviation 48.5 H, RDW Coeff of Armida 14.7 H, Plt Count 98 L, MPV 11.0, Immature Gran % (Auto) 0.400, Neut % (Auto) 72.3 H, Lymph % (Auto) 15.8 L, [place] % (Auto) 7.6, Eos % (Auto) 3.5, Baso % (Auto) 0.4, Absolute Neuts (auto) 3.7, Absolute Lymphs (auto) 0.81 L, Nucleated RBC % 0, APTT 70.3 H, Sodium 137, Potassium 3.7, Chloride 106, Carbon Dioxide 28.0, Anion Gap 3 L, BUN 10, Creatinine 0.75, Estim Creat Clear Calc 112.36, Est GFR (MDRD) Af Amer 137, Est GFR (MDRD) Non-Af 113, BUN/Creatinine Ratio 13.3, Glucose 125 H, Calcium 8.3 L Radiography Diagnostic Testing: Radiology Impression Aorta Iliac Vascular Ultrasound 11/05/24 07:15 Interpretation Summary Inferior vena cava limited visualization, visualized thrombus. Right iliac vein stent occluded Left iliac vein stent patent with normal venous flow pattern. Ordering Physician: Helen Anguiano Referring Physician: N/A Performed By: Ant Renteria RVT Venous Doppler Study 11/05/24 07:15 Interpretation Summary Acute deep vein thrombosis is noted in the right common femoral vein, femoral vein, profunda femoral vein, popliteal vein, tibioperoneal trunk vein, gastrocnemius vein, posterior tibial vein, peroneal vein. Acute superficial vein thrombosis noted in the right saphenofemoral junction, great saphenous vein. Acute deep vein thrombosis is noted in the left femoral vein, popliteal vein. Ordering Physician: Helen Anguiano Referring Physician: N/A Performed By: Ant Renteria RVT Physical Exam Narrative General: Alert, Oriented x3, Cooperative, No apparent distress HEENT: Atraumatic, PERRLA, EOMI, Normocephalic Oral: Moist Mucosa Neck: Supple, No JVD Lungs: Clear to auscultation, Normal air movement, No rhonchi, No wheeze, No rales Cardiovascular: Regular rate, Regular Rhythm, Normal S1, Normal S2, No murmurs Abdomen: Soft, Non Tender, Non-Distended, No Hepato-splenomegaly Extremities: Right lower extremity edema, Capillary Refill Less than 3 Seconds Skin: No rashes, No breakdown Musculoskeletal: No Tenderness to Palpation of Joints or Extremities Neurological: No focal neurological deficits, Motor Exam 5/5 strength throughout, Sensory exam intact to light touch and pain Psych/Mental Status: Normal Affect, Appropriate Assessment & Plan Assessment/Plan (1) Peripheral arterial disease: (2) Acute deep vein thrombosis (DVT) of right lower extremity: (3) Thrombocytopenia: PLAN: Plan 1. Acute DVT on the right with edema and pain ? Pain is improved ? Continue with the heparin drip ? Appreciate vascular surgery's assistance ? Plan for thrombectomy 11/06/2024 ? He does have a history of peripheral artery disease 2. Thrombocytopenia ? Will have him follow-up with hematology and oncology as an outpatient for monitoring and evaluation ? He states that he is had blockages and clots in the past but denies any family history of clotting disorder DVT: Heparin drip Charges/Coding Visit Charges Inpatient E&M: 39563 Subs Hosp L2
[2024-11-06 11:05] LABS: Partial Thromboplast Time 67.5 Seconds (24.1-36.2)
--- NOTE | 2024-11-06 11:34 | PRE.ANES_ITS ---
ASA Classification* ASA Classification ASA Classification: 3 Assessment & Plan Anesthesia* Anesthesia Assessment Anesthesia Assessment: Discussed sedation and/or anesthesia options, risks, benefits, and alternatives with patient/parents/legal guardian/POA. Questions invited. The patient/parents/legal guardian/POA seems to understand and agrees to proceed with anesthesia plan. Reviewed the physical assessment, medical history, allergy history and patient home medications list prior to surgery/procedure/anesthetic and documented any changes. Performed airway and anesthesia risk assessments. Anesthesia Type Anesthesia Type: General Anesthesia Focused Assessment* Temperature: 98.5 F Pulse Rate: 76 Blood Pressure: 103/64 Respiratory Rate: 18 Pulse Ox: 96 Airway Assessment Mouth opens: >3 cm Mallampati Score: II Focused Labs Anesthesia Preop lab: CBC WBC 5.1 K/mm3 (4.4-11.0) 11/06/24 03:30 RBC 3.65 M/mm3 (4.6-6.2) L 11/06/24 03:30 Hgb 11.2 g/dL (13.0-16.5) L 11/06/24 03:30 Hct 32.8 % (40-54) L 11/06/24 03:30 Plt Count 98 K/mm3 (150-450) L 11/06/24 03:30 CHEMISTRY Potassium 3.7 mmol/L (3.5-5.1) 11/06/24 03:30 Sodium 137 mmol/L (136-145) 11/06/24 03:30 Magnesium 2.0 mg/dL (1.6-2.6) 11/05/24 05:59 BUN 10 mg/dL (7-18) 11/06/24 03:30 Creatinine 0.75 mg/dL (0.70-1.30) 11/06/24 03:30 Glucose 125 mg/dL (74-106) H 11/06/24 03:30 COAG PT 18.7 SECONDS (11.7-14.9) H 11/05/24 05:59 Pre-Assessment Diagnosis/Proposed Procedure Planned Operative Procedure(s): Thrombectomy Anesthesia History 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 When Was Last Pacemaker Check QUESTION #4 FULL TEXT: You/Your Family Experience fever (hyperthermia) with Anesthesia Last Oral Intake Last Oral intake: Last Oral Intake NPO since Meds taken in AM with sips of water? Meds patient instructed to take am of surgery PONV PONV - gaming floor supervisor: PONV - gaming floor supervisor Female HX of Motion Sickness HX of N/V After Surgery Non-Smoker Duration of Surgery greater than 60 minutes Number of Risk Factors PONV Score Height & Weight Height & Weight: Anesthesia: Height & Weight Height 6 ft 11/05/24 11:33 Weight: 73.1 kg 11/05/24 11:33 Body Mass Index (BMI) 21.8 11/05/24 02:54 Respiratory Assessment Respiratory Assessment - gaming floor supervisor: Respiratory Tract Infection Hx - gaming floor supervisor Hx Respiratory Tract Infection STOP Sleep Apnea STOP Sleep Apnea - gaming floor supervisor: STOP Sleep Apnea - gaming floor supervisor Hx Hypertension No 11/05/24 02:54 Hx Sleep Apnea No 11/05/24 02:54 CPAP BIPAP Do you snore loudly (louder No 11/05/24 02:54 than talking or can be heard Do you often feel tired/ No 11/05/24 02:54 fatigued/ sleepy during daytime? Has anyone observed you stop No 11/05/24 02:54 breathing during sleep? STOP Results Negative 11/05/24 02:54 QUESTION #5 FULL TEXT : Do you snore loudly (louder than talking or can be heard through closed doors)? 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 Specify any problems Hx of Preganancy in last 3 N/A 12/10/24 02:54 Months Nurse Filling Out Transfusion MBAUTZ 11/05/24 02:54 & Questions: Date: 11/05/24 11/05/24 02:54 Time: 03:02 11/05/24 02:54 Patient unable to answer at this time (ie. confused, unrespo /Reproduction History /Reproductive History - gaming floor supervisor: /Reproductive Hx- gaming floor supervisor Hx Now Gestational Age (in weeks): EDC: Hx Hx Para Hx Section SAB Active Medications Active Medications: Current Medications Generic Name Dose Route Start Last Admin Trade Name Freq PRN Reason Stop Dose Admin Acetaminophen 650 mg 11/05/24 02:54 11/05/24 08:33 Acetaminophen 325 Mg Tablet PO 650 mg Q6H PRN PRN Administration Pain 1-10 Or Fever >100.7 Atorvastatin Calcium 40 mg 11/06/24 22:00 Atorvastatin Calcium 40 Mg Tablet PO QHS ELISABETH Heparin Sodium (Porcine) 0 unit 11/05/24 10:00 Heparin Injection (Vial) 5,000 Unit/Ml Vial IV UD PRN dose adjustment Protocol Hydromorphone HCl 1 mg 11/05/24 06:36 11/06/24 06:45 Hydromorphone 1 Mg/Ml Syringe IV 1 mg Q3H PRN PRN Administration Pain Score 6-10 Sodium Chloride 500 mls @ 15 mls/hr 11/05/24 03:06 IV .[id number] PRN Saline Flush Sodium Chloride 500 mls @ 15 mls/hr 11/05/24 03:06 IV .[id number] PRN Additional IVPB Infusion Heparin Sodium/Dextrose 25,000 units in 250 mls @ 11 mls/hr 11/05/24 10:00 11/06/24 06:03 CONT INF 1,100 units/hr .[id number] ELISABETH 11 mls/hr Administration Protocol As Directed Senna/Docusate Sodium 1 tablet 11/06/24 00:05 11/06/24 01:08 Senna/Docusate Sodium 1 Tablet PO 1 tablet DAILY ELISABETH Administration Sodium Chloride 10 - 40 ml 11/05/24 03:06 11/05/24 21:20 0.9% Saline Lock 10 Ml Syringe IV 10 ml UD PRN Administration SALINE FLUSH PFSH Medical History DVT (deep venous thrombosis) Home Medications ?Medication ?Instructions ?Recorded ?Last Taken ?Type herbal complex no.174 450 mg 450 mg PO PRN 11/04/24 Unknown History capsule (Echinacea and Goldenseal) vitamin A 2,400 mcg capsule 2,400 mcg PO DAILY 11/04/24 Unknown History Allergy/AdvReac Type Severity Reaction Status Date / Time Opioids - Morphine Analogues Allergy Other Verified 11/04/24 21:34 Surgical History S/P ORIF (open reduction internal fixation) fracture Social History Smoking Status: Never smoker Review of Systems (Anesthesia) ROS Narrative System reviewed and no additional complaints, except as documented.
[2024-11-06 17:00] LABS: ACT Activated Clotting Time 222 sec (74-137)
[2024-11-06] MEDS: 0.9% Normal Saline (1000mL) 1,000 ML 15 ML IV (17:15)
--- NOTE | 2024-11-06 17:16 | PCM.POST.ANE ---
Anesthesia: Postop Eval I Current Vital Signs Temperature: 97.6 F Pulse Rate: 86 Blood Pressure: 126/77 Respiratory Rate: 18 Pulse Ox: 100 Assessment Airway patent: Yes Spontaneous unlabored respirations: Yes nausea: No Vomiting: No Anesthesia Complication: No Fluid Hydration Crystalloid volume administer (ml): 1,000 Total IV fluid infused: 1,000 Progress Note Anesthesia document: Postop Eval 1 completed: Yes
--- NOTE | 2024-11-06 17:41 | OP.PCM_ITS ---
Operative Report (Standard) Operative Information Date of Procedure: 11/06/24 Pre-Operative Diagnosis: DVT right lower extremity Post-Operative Diagnosis: same Surgery/Procedure Performed: Venogram IVC, right lower extremity IVUS IVC, right common/external iliac vein, left common/external iliac vein percutaneous mechanical thrombectomy right femoral, common femoral, external iliac, common iliac vein angioplasty/stent right common iliac vein angioplasty left common iliac vein construction driver: No Type of Anesthesia: General RN Documented Start/Stop Times: Operation Date: 11/06/24 13:00 Case Time Into Pre-Op 11/06/24 11:25 Into Recovery 11/06/24 17:15 Out of Recovery 11/06/24 18:21 Procedure Start Time: 14:00 Procedure Stop Time: 17:00 Select all DRAINS/GRAFTS/IMPLANTS that apply: Implanted device Implanted device details: Bard Venovo [id number] Estimated Blood Loss: 250 Specimen collected: No Description of surgery: HPI: Patient is a 59-year male with history of prior ilio caval venous stents placed approximately 2 years prior at an outside facility. He presented with acute onset right lower extremity pain, discoloration, and edema. He is found to have extensive DVT and evidence of thrombosis of his right iliac vein stents. He is taken now for percutaneous mechanical thrombectomy and possible restent. Description of procedure: Upon obtaining form consent and verification correct patient procedure site patient was taken to the [facility] [employer] [facility] he was placed under general anesthesia. He was then positioned prepped and draped in usual sterile fashion a time was performed. Skin overlying the right jugular vein was anesthetized 1% lidocaine and the vessel accessed under ultrasound guidance with micropuncture needle wire. This then changed for micropuncture sheath through which a Bentson wire was advanced traversing the superior vena cava into the atrium and ultimately to the inferior vena cava. The micropuncture sheath was then exchanged for a short 5 Upper Sorbian sheath and a Kumpe catheter which were used to navigate to the IVC confluence. The wires withdrawn a hand-injection subtraction venography was performed confirming occlusion of the superior aspect of the right iliac vein stent with patent left iliac vein stent. Next a straight stiff Glidewire in the Kumpe catheter used to engage the top of the o ccluded stent and significant progress made and traverse the occlusion advancing the wire and catheter into the external iliac vein. Given the distance femoral access to our working point we did not have sufficient support to cross the entirety of the occlusion so the stiff Glidewire's and exchanged for the glide advantage wire and the Kumpe and short 5 Upper Sorbian sheath exchanged for a 7 Upper Sorbian destination sheath which was advanced into the mid common iliac vein. From this position using the glide advantage wire and Kumpe catheter we are able to successfully cross the remainder of the iliac vein occlusion and ultimately navigate into the femoral vein. The patient was then heparinized and allowed to circulate for 3 minutes. The 7 Upper Sorbian sheath was then exchanged for the Inari sheath was advanced in the position in the inferior vena cava just cephalad to the stents and the final deployed. Next intravascular shunt probe was advanced and recorded pullback performed of the right femoral vein, common femoral vein, external iliac vein, common iliac vein, IVC. This confirmed position within the lumen of the stent and revealed subacute appearing thrombus. The Inari flow retriever aspiration thrombectomy device was then advanced through the sheath into the femoral vein. Multiple aspirations were performed across the femoral vein all the way up to the superior aspect of the stent. The device was then readvanced and repeat imaging via the catheter showed significant thrombus resolution with some focal areas of residual. Multiple aspirations were again performed of these areas of concern as well as in the more superior aspect of the stent. The device was then readvanced distally and repeat imaging performed which revealed further significant gains. There was some area of adherent thrombus in the mid external iliac vein that appeared resistant to our aspiration efforts. A 16 mm Bard [place] angioplasty balloon was advanced and positioned at this location inflated for multiple inflations. The device was then readvanced and aspirations performed with further thrombus returned. Repeat imaging revealed no significant residual thrombus. Of note the right iliac vein stent lower than the left iliac vein stent. Due to this it was significantly compressed and likely the cause for thrombosis. There was not much significant chronic appearance of any thrombus within the [place] veins within the stented segment. A Bard Venovo 18 x 80 self-expanding venous stent was then advanced in position realigning with the contralateral side and deployed. The delivery system was withdrawn and the 16 mm balloon advanced and inflated. There we were within the vena cava and was felt there was adequate room to displace the contralateral stent there appeared to be some contralateral Wallstent so the balloon was then deflated. The IJ sheath was encountered punctured and a second wire and catheter were advanced into the left iliac vein stent. Intravascular ultrasound probe was then advanced and recorded pullback performed of the IVC left common iliac vein which revealed position within the true lumen of the stent. A second 18 x 80 angioplasty balloon was advanced in position and easily inflated to nominal in the bilateral common iliac veins. These were then deflated iliac vein balloon withdrawn. The right iliac vein balloon was advanced to the more distal aspect of the stent and inflated abdominal and the plated and ultimately withdrawn. The ultrasound probe was then readvanced and recorded pullback performed of the newly stent stent positioning position. Wires and catheters then withdrawn and a pursestring suture placed at the access site after which the IJ sheath was withdrawn and manual pressure held till hemostasis was obtained. The patient was then taken to the recovery room with plans to return to the PCU. Surgical Findings: See above Complications Complications: No
[2024-11-06] MEDS: 0.9% Saline Lock 10 ML Syringe IV (20:40)
--- NOTE | 2024-11-06 21:07 | POSTOPAN2_ITS ---
Anesthesia Postop Eval I Sum Postop Eval Completion status Anesthesia document: Postop Eval 1 completed: Yes Anesthesia Postop Eval I Summary Anesthesia Postop Eval I Summary: Anesthesia Postop Eval I: Assessment Summary Airway patent Yes 11/06/24 17:16 MEMORY CARE PROGRAM DIRECTOR.[email or web address] Spontaneous unlabored Yes 11/06/24 17:16 MEMORY CARE PROGRAM DIRECTOR.CSIR respirations Mental status nausea No 11/06/24 17:16 MEMORY CARE PROGRAM DIRECTOR.CSIR Vomiting No 11/06/24 17:16 MEMORY CARE PROGRAM DIRECTOR.CSIR Anesthesia Postop Eval I: Fluid Summary Crystalloid volume administer 1,000 11/06/24 17:16 MEMORY CARE PROGRAM DIRECTOR.CSIR (ml) Colloids volume administered ( ml) Blood Product volume administered (ml) Total IV fluid infused 1,000 11/06/24 17:16 MEMORY CARE PROGRAM DIRECTOR.CSIR Anesthesia Postop Eval I: Summary Notes Anesthesia Complication No 11/06/24 17:16 MEMORY CARE PROGRAM DIRECTOR.CSIR Anesthesia Complication Comment: Post-operative progress note Anesthesia: Postop Eval II Evaluation Mental status: Awake and Calm Pain Level: 1 nausea: No Vomiting: No Complications Anesthesia Complication: No
--- NOTE | 2024-11-06 21:07 | PCM.POSTANE2 ---
Anesthesia Postop Eval I Sum Postop Eval Completion status Anesthesia document: Postop Eval 1 completed: Yes Anesthesia Postop Eval I Summary Anesthesia Postop Eval I Summary: Anesthesia Postop Eval I: Assessment Summary Airway patent Yes 11/06/24 17:16 HOOP [email or web address].CSIR Spontaneous unlabored Yes 11/06/24 17:16 HOOP [email or web address].CSIR respirations Mental status nausea No 11/06/24 17:16 HOOP MAKER.CSIR Vomiting No 11/06/24 17:16 HOOP MAKER.CSIR Anesthesia Postop Eval I: Fluid Summary Crystalloid volume administer 1,000 11/06/24 17:16 HOOP MAKER.CSIR (ml) Colloids volume administered ( ml) Blood Product volume administered (ml) Total IV fluid infused 1,000 11/06/24 17:16 HOOP MAKER.CSIR Anesthesia Postop Eval I: Summary Notes Anesthesia Complication No 11/06/24 17:16 HOOP MAKER.CSIR Anesthesia Complication Comment: Post-operative progress note Anesthesia: Postop Eval II Evaluation Mental status: Awake and Calm Pain Level: 1 nausea: No Vomiting: No Complications Anesthesia Complication: No
--- NOTE | 2024-11-06 21:08 | PCM.POSTANE2 ---
Anesthesia Postop Eval I Sum Postop Eval Completion status Anesthesia document: Postop Eval 1 completed: Yes Anesthesia Postop Eval I Summary Anesthesia Postop Eval I Summary: Anesthesia Postop Eval I: Assessment Summary Airway patent Yes 11/06/24 17:16 SDV PILOT/NAVIGATOR/DDS OPERATOR.CSIR Spontaneous unlabored Yes 11/06/24 17:16 SDV PILOT/NAVIGATOR/DDS OPERATOR.CSIR respirations Mental status Awake,Calm 11/06/24 21:07 nausea No 11/06/24 21:07 Vomiting No 11/06/24 21:07 Anesthesia Postop Eval I: Fluid Summary Crystalloid volume administer 1,000 11/06/24 17:16 SDV PILOT/NAVIGATOR/DDS OPERATOR.CSIR (ml) Colloids volume administered ( ml) Blood Product volume administered (ml) Total IV fluid infused 1,000 11/06/24 17:16 SDV PILOT/NAVIGATOR/DDS OPERATOR.HORACEIR Anesthesia Postop Eval I: Summary Notes Anesthesia Complication No 11/06/24 21:07 Anesthesia Complication Comment: Post-operative progress note Anesthesia: Postop Eval II Evaluation Mental status: Awake and Calm Pain Level: 1 nausea: No Vomiting: No Complications Anesthesia Complication: No
[2024-11-06] MEDS: MELATONIN 3 MG TABLET PO (22:40)
[2024-11-06] MEDS: Atorvastatin Calcium 40 MG Tablet PO (22:40)
[2024-11-06] MEDS: Acetaminophen 325 MG Tablet 650 MG PO (22:40)
[2024-11-07 00:12] LABS: Partial Thromboplast Time 46.4 Seconds (24.1-36.2)
[2024-11-07] MEDS: HYDROmorphone 1 MG/ML Syringe IV ×2 (01:09→08:49)
[2024-11-07 03:00] VITALS: BP 96/53; PULSE 76; RESP 16; TEMP 36.9; O2SAT 94
[2024-11-07 06:44] LABS: Absolute Lymphocyte Count 0.59 X10^3/uL (0.83-4.51); Absolute Neutrophil Count 2.9 X10^3/uL (2.0-7.7); Basophil# 0.03 X10^3/uL; Basophil% 0.7 % (0-1); Eosinophil# 0.15 X10^3/uL; Eosinophils% 3.7 % (0-5); Hematocrit 29.5 % (40-54); Hemoglobin 9.8 g/dL (13.0-16.5); Lymphocyte # 0.59 X10^3/ul (0.83-4.51); Lymphocyte % 14.7 % (19-41); Mean Corp Hgb Conc 33.2 g/dL (32-36); Mean Corpuscular Hgb 30.3 pg (27.0-32.0); Mean Corpuscular Volume 91.3 fL (80-94); Mean Platelet Vol. 10.7 fl (6.2-12.0); Monocyte# 0.34 X10^3/uL; Monocyte% 8.5 % (0-10); NRBC Flagged by Analyzer 0 % (0-5); Neutrophil # 2.89 X10^3/uL (2.7-7.7); Neutrophil % 72.2 % (47-70); POSITIVE COUNT YES; POSITIVE DIFFERENTIAL YES; Platelet Count 93 K/mm3 (150-450); RBC Distribution Width SD 50.6 fl (35.1-43.9); Red Blood Count 3.23 M/mm3 (4.6-6.2)
[2024-11-07 07:02] LABS: Partial Thromboplast Time 36.3 Seconds (24.1-36.2)
[2024-11-07 07:29] LABS: Cholesterol 113 mg/dL (200); High Density Lipoprotein 42 mg/dL; Triglycerides 83 mg/dL; Very Low Density Lipoprotein 17 mg/dL (5-40)
--- NOTE | 2024-11-07 08:00 | PN.SURG_ITS ---
Subjective Subjective Patient was sitting up at the side of the bed this morning, reports some discomfort at the access site and a sore throat/hoarse voice. He feels that the swelling and discoloration in his RLE are much improved. He was able to ambulate yesterday evening after his bedrest, reports he did a lap all the way around the unit with minimal discomfort. Objective Data Objective Data Vital Signs: Vital Signs Temp Pulse Resp BP Pulse Ox O2 Del Method 98.4 F 76 16 96/53 L 94 Room Air 11/07/24 03:00 11/07/24 03:00 11/07/24 03:00 11/07/24 03:00 11/07/24 03:00 11/07/24 03:00 Oxygen Delivery Method Room Air Weight: 161 lb 2.526 oz Body Mass Index (BMI) 21.8 Intake & Output: Intake and Output for Last 24 Hours 11/05/24 11/06/24 11/07/24 23:59 23:59 23:59 Intake Total 2858.6 / 2858.6 2471.18 / 2471.18 800 / 800 Output Total 800 / 800 1000 / 1000 550 / 550 Balance 2058.6 / 2058.6 1471.18 / 1471.18 250 / 250 Lab / Micro Data 11/07/24 06:26 11/06/24 03:30 Labs: Laboratory Results - last 24 hr 11/06/24 10:41: APTT 67.5 H 11/06/24 16:12: Activated Clotting Time 222 H 11/06/24 23:50: APTT 46.4 H 11/07/24 06:26: WBC 4.0 L, RBC 3.23 L, Hgb 9.8 L, Hct 29.5 L, MCV 91.3, MCH 30.3, MCHC 33.2, RDW Std Deviation 50.6 H, RDW Coeff of Armida 15.0 H, Plt Count 93 L, MPV 10.7, Immature Gran % (Auto) 0.200, Neut % (Auto) 72.2 H, Lymph % (Auto) 14.7 L, Bradley % (Auto) 8.5, Eos % (Auto) 3.7, Baso % (Auto) 0.7, Absolute Neuts (auto) 2.9, Absolute Lymphs (auto) 0.59 L, Nucleated RBC % 0, APTT 36.3 H, Triglycerides 83, Cholesterol 113, LDL Cholesterol 54, VLDL Cholesterol 17, HDL Cholesterol 42 Physical Exam Const alert, oriented x3 and no apparent distress General Appearance: cooperative and comfortable HEENT normocephalic, head/scalp atraumatic, hearing grossly normal bilaterally, external ears normal and external nose normal Nose: external nose normal Eyes EOMs intact bilaterally General Eye: normal appearance of both eyes Neck Neck Narrative: R IJ access site without any bleeding or hematoma Resp normal respiratory effort and no use of accessory muscles Effort and Inspection: able to speak in complete sentences; Negative for labored, grunting, stridor or retractions Cardio regular rate and regular rhythm Extremity Extremity Narrative: RLE edema and coloring improved from yesterday Skin General Skin Exam: no breakdown Trauma: no lacerations or abrasions Neuro oriented x3, CN's II-XII intact bilaterally, moves all extremities, no focal motor deficits and no sensory deficits noted Psych cooperative, affect normal, speech normal and activity/motor behavior normal Appearance: grossly normal Attitude: calm and engaged Speech: normal speech Mood & Affect: euthymic mood Judgement: judgement good Assessment & Plan Assessment/Plan (1) Iliac vein stenosis, right: (2) Iliac vein stenosis, left: (3) Acute deep vein thrombosis (DVT) of right lower extremity: PLAN: Plan R IJ access site satisfactory in appearance, no hematoma. The larger pressure dressing bandage was very irritating for him, changed this for a small opsite dressing and he stated this was more comfortable. Will increase to therapeutic heparin dosing this morning. As long as he does not have any bleeding, then OK to transition back to oral anticoagulant this afternoon. From vascular perspective, OK for d/c once back to oral anticoagulant. He should not lift greater than 20 pounds for 2 weeks, otherwise may return to activity as tolerated. Plan for follow-up in the office in 1-2 weeks for suture removal. Charges/Coding Visit Charges Inpatient E&M: 53526 Subs Hosp L1
[2024-11-07 08:46] VITALS: BP 103/64; BP 94/59; PULSE 72; RESP 16; TEMP 37.1; O2SAT 98
[2024-11-07] MEDS: Senna/Docusate Sodium 1 Tablet PO (08:50)
[2024-11-07 09:00] VITALS: BP 99/66; PULSE 66; RESP 16; TEMP 36.4; O2SAT 98
[2024-11-07] MEDS: HEPARIN/D5w 25,000 UNITS 25,000 UNITS/250 ML IV.SOLN. 11 UNITS CONT INF (10:49)
[2024-11-07 11:37] LABS: Partial Thromboplast Time 34.3 Seconds (24.1-36.2)
[2024-11-07] MEDS: Phenol/Sodium Phenolate 180ML 3 SPRAY MUCOUS MEM (11:53)
[2024-11-07] MEDS: Acetaminophen 325 MG Tablet 650 MG PO (11:58)
--- NOTE | 2024-11-07 13:53 | DCINST_ITS ---
Discharge Instructions Diet Discharge Diet: No restrictions DC O2, CPAP, BIPAP needs Additional Home O2 Discharge instructions: No Dressing / Incision Discharge Activity: Return to Normal Activity Dressing / Incision Call your doctor if your incision/area has: Continuous Slow Oozing, Sudden Increased Bleeding and Increased Redness Call your doctor if you observe: Fever of 101 or Higher, Shortness of breath, Dizziness, Fainting spells, Swelling in the ankles, Chest pain and Increased palpitations (irregular heartbeat) Follow Up Care Test Results: Test results from this visit will be discussed in further detail at your follow- up appointment, if applicable. Discharge Plan Admission Admit Date/Time: 11/05/24 02:14 Attending Provider: Zia Birch Primary Care Provider: Care Physician,No Primary Consulting Providers: Osman Sultana; Javi Puente Discharge Orders/Prescriptions Prescriptions: New Eliquis 5 mg tablet 5 mg PO BID 30 Days Qty: 60 0RF Continued Echinacea and Goldenseal 450 mg capsule 450 mg PO PRN vitamin A 2,400 mcg capsule 2,400 mcg PO DAILY Referrals / Follow Up: Osman Sultana MD [Med Staff - Active Staff] - Within 2 Weeks Care Physician,No Primary [Primary Care Provider] - Within 1 Week Disposition Disposition (needs filled in before D/C Order can be placed): Home, Self Care
--- NOTE | 2024-11-07 13:55 | DS.PCM_ITS ---
Providers Date of Admission: 11/05/24 Primary Care Physician: Deisy Primary Care Phys Consultations 11/05/24 02:54 Consult: Vascular Surgery Routine Consulting Provider: Osman Sultana Reason for Consult: DVT, PAD EMERGENT Consult: Yes MD Notified: Yes Date Notified: 11/05/24 Time Notified: 02:16 Method of Notification: Text Reason For Visit: DVT, PERIPHERAL ARTERY DISEASE AND OCCLUSION Diagnosis Discharge Diagnosis (1) Iliac vein stenosis, right: Status: Acute Code(s): I87.1 - Compression of vein (2) Iliac vein stenosis, left: Status: Acute Code(s): I87.1 - Compression of vein (3) Acute deep vein thrombosis (DVT) of right lower extremity: Status: Acute Code(s): I82.401 - Acute embolism and thrombosis of unspecified deep veins of right lower extremity Medications at Discharge Home Medications herbal complex no.174 450 mg capsule (Echinacea and Goldenseal) 450 mg PO PRN 11/04/24 vitamin A 2,400 mcg capsule 2,400 mcg PO DAILY 11/04/24 apixaban 5 mg tablet (Eliquis) 5 mg PO BID 30 days #60 tabs 11/07/24 Hospital Course Operations None Procedures - (enogram IVC, right lower extremity IVUS IVC, right common/external iliac vein, left common/external iliac vein percutaneous mechanical thrombectomy right femoral, common femoral, external iliac, common iliac vein angioplasty/stent right common iliac vein angioplasty left common iliac vein) Summary of Care Provided Minutes Spent on Discharge: 32 Hospital Course: Per HPI: REGINA SORENSEN, is a 59 M who presents to the emergency room with right inguinal pain. Patient has significant past medical history of vascular disease status post stenting of both lower extremities. He states he has had increasing pain throughout the day in the right lower extremity that gets worse with activity and better with rest. He states with activity his leg turns purple and he feels bumps in his right inguinal area. Patient denies chest pain, shortness of breath and/or nausea vomiting or diarrhea. Venous Doppler ultrasound shows DVT in the common femoral vein as well as CT angiogram shows multiple lower extremity artery occlusions. Patient will be admitted to the progressive care unit and vascular surgery consulted. Hospital Course: 1. Acute DVT on the right lower extremity due to potential compression from scoliosis?59-year-old male whose had previous stents on the left presented to the hospital with increasing lower extremity edema and pain found to have an extensive right lower extremity DVT. He was started on a heparin drip and vascular surgery was consulted for thrombectomy. He had surgery on 11/06/2024 with thrombectomy and stent placement. He tolerated the procedure well and has not had any bleeding from his operative sites so I discussed with him the possibility of discharge and he expressed understanding Erisman of his going home and would like to go home today. Will plan for Eliquis on discharge 5 mg p.o. twice daily with outpatient follow-up in 2 weeks with vascular surgery. He is planning on moving to [place] in February and we discussed with him the need to find a vascular surgeon when he gets there to monitor his condition as he will need to remain on anticoagulation for at least a year. He does have thrombocytopenia so I do also recommend outpatient evaluation and monitoring by hematology when he gets to [place]. Physical Exam Narrative General: Alert, Oriented x3, Cooperative, No apparent distress HEENT: Atraumatic, PERRLA, EOMI, Normocephalic Oral: Moist Mucosa Neck: Supple, No JVD Lungs: Clear to auscultation, Normal air movement, No rhonchi, No wheeze, No rales Cardiovascular: Regular rate, Regular Rhythm, Normal S1, Normal S2, No murmurs Abdomen: Soft, Non Tender, Non-Distended, No Hepato-splenomegaly Extremities: Right lower extremity edema, Capillary Refill Less than 3 Seconds Skin: No rashes, No breakdown Musculoskeletal: No Tenderness to Palpation of Joints or Extremities Neurological: No focal neurological deficits, Motor Exam 5/5 strength throughout, Sensory exam intact to light touch and pain Psych/Mental Status: Normal Affect, Appropriate Weight / BMI Weight Weight: 161 lb 2.526 oz Body Mass Index (BMI) 21.8 ABG / Lab / Microbiology Data 11/07/24 06:26 11/06/24 03:30 Laboratory: Laboratory Results - last 24 hr 11/06/24 16:12: Activated Clotting Time 222 H 11/06/24 23:50: APTT 46.4 H 11/07/24 06:26: WBC 4.0 L, RBC 3.23 L, Hgb 9.8 L, Hct 29.5 L, MCV 91.3, MCH 30.3, MCHC 33.2, RDW Std Deviation 50.6 H, RDW Coeff of Armida 15.0 H, Plt Count 93 L, MPV 10.7, Immature Gran % (Auto) 0.200, Neut % (Auto) 72.2 H, Lymph % (Auto) 14.7 L, [place]ahan % (Auto) 8.5, Eos % (Auto) 3.7, Baso % (Auto) 0.7, Absolute Neuts (auto) 2.9, Absolute Lymphs (auto) 0.59 L, Nucleated RBC % 0, APTT 36.3 H, Triglycerides 83, Cholesterol 113, LDL Cholesterol 54, VLDL Cholesterol 17, HDL Cholesterol 42 11/07/24 10:58: APTT 34.3 D/C Instructions Discharge Diet: No restrictions Lifting Restricted to (Lbs): 20 Lifting Restrictions: 2 weeks Call your doctor if your incision/area has: Continuous Slow Oozing, Sudden Increased Bleeding and Increased Redness Call your doctor if you observe: Fever of 101 or Higher, Shortness of breath, Dizziness, Fainting spells, Swelling in the ankles, Chest pain and Increased palpitations (irregular heartbeat) DC O2, CPAP, BIPAP Needs Additional Home O2 Discharge instructions: No DC home with Oxygen: No Meaningful Use Info Meaningful Use Meaningful Use Diagnoses (Choose all that apply): None applicable Ischemic Stroke Statin Dosing Therapy Reference: STATIN DOSE THERAPY REFERENCE: * Patients > 75 years receive moderate or high dose statin therapy. * Patients 75 years or YOUNGER should receive HIGH intensity statin dose unless contraindicated. You will be required to document reason for non-treatment if statin daily dose does not meet guidelines. HIGH DOSE STATIN THERAPY DAILY Atorvastatin > than or = to 40 mg Rosuvastatin > than or = to 20 mg Amlodipine + Atorvastatin > than or = to 2.5/40 mg Ezetimibe + Simvastatin 10/80 mg Simvastatin 80mg Discharge Plan Admission Admit Date/Time: 11/05/24 02:14 Attending Provider: Zia Birch Primary Care Provider: Care Physician,No Primary Consulting Providers: Osman Sultana; Javi Puente Discharge Orders/Prescriptions Prescriptions: New Eliquis 5 mg tablet 5 mg PO BID 30 Days Qty: 60 0RF Continued Echinacea and Goldenseal 450 mg capsule 450 mg PO PRN vitamin A 2,400 mcg capsule 2,400 mcg PO DAILY Referrals / Follow Up: Osman Sultana MD [Med Staff - Active Staff] - Within 2 Weeks Care Physician,No Primary [Primary Care Provider] - Within 1 Week Disposition Disposition (needs filled in before D/C Order can be placed): Home, Self Care Charges/Coding Visit Charges Inpatient E&M: 14063 Disch Hosp >30min
--- NOTE | 2024-11-07 14:23 | CASEMGMT ---
Patient has order for discharge. Patient is discharging on DELMY Gross CM called [facility], copay is $0. RN CM in to updated patient regarding copay and discharge. Patient denies needs or help at discharge. Patient had no further questions or concerns.
[2024-11-07 14:57] VITALS: BP 103/64; BP 116/64; PULSE 76; RESP 16; TEMP 37; O2SAT 97
== END 2024-11-07 15:25 | disposition home or self-care (01) | DRG 271 ==
LOC: ED 11-05 00:46 → PCU 11-05 04:05
PROVIDERS: Physician Assistant; Surgery Trauma Surgery; Admitting Provider Family Medicine; Emergency Provider Emergency Medicine; Visit Provider Family Medicine
PROC: 06CM3ZZ Extirpation of Matter from Right Femoral Vein, Percutaneous Approach (ICD-10-PCS; principal; 2024-11-06 12:40)
DX: I82.411 Acute embolism and thrombosis of right femoral vein (principal); I87.1 Compression of vein; T82.868A Thrombosis due to vascular prosthetic devices, implants and grafts, initial encounter; D69.6 Thrombocytopenia, unspecified; I82.421 Acute embolism and thrombosis of right iliac vein; I82.431 Acute embolism and thrombosis of right popliteal vein; I73.9 Peripheral vascular disease, unspecified; I82.811 Embolism and thrombosis of superficial veins of right lower extremity; I82.461 Acute embolism and thrombosis of right calf muscular vein; I82.451 Acute embolism and thrombosis of right peroneal vein; X58.XXXA Exposure to other specified factors, initial encounter; Z79.01 Long term (current) use of anticoagulants
CPT/HCPCS: 36010; 36415; 37187; 37238; 37248; 37252; 37253; 75635; 75825; 76937; 80048; 80061; 81001; 83735; 85025; 85027; 85347; 85610; 85730; 93005; 93970; 93971; 93978; 99285; C1725; C1753; C1757; C1769; C1876; C1894; J7030; Q9967; A4216; J2405; J3490

== ENCOUNTER → 2024-11-21 | Outpatient (CLI) | payer MEDICARE, SELFPAY ==
[2024-11-21 09:54] LABS: Hematocrit 36.2 % (40-54); Hemoglobin 11.8 g/dL (13.0-16.5); Mean Corp Hgb Conc 32.6 g/dL (32-36); Mean Corpuscular Volume 92.1 fL (80-94); Mean Platelet Vol. 9.7 fl (6.2-12.0); Platelet Count 211 K/mm3 (150-450); RBC Distribution Width CV 13.5 % (11.6-14.6); RBC Distribution Width SD 46.5 fl (35.1-43.9); Red Blood Count 3.93 M/mm3 (4.6-6.2); White Blood Count 5.7 K/mm3 (4.4-11.0)
== END | disposition home or self-care (01) ==
PROVIDERS: PCP Family Medicine; Referring Provider Physician Assistant; Visit Provider Physician Assistant
DX: D69.6 Thrombocytopenia, unspecified (principal)
CPT/HCPCS: 36415; 85027